=== PATIENT | female | born 1965 | race Hispanic/Latino ===

== ENCOUNTER 2018-12-13 09:27 | Outpatient (CLI) | payer BC ==
--- NOTE | 2018-12-13 10:13 | Ultrasound Report ---
TARGETED RIGHT BREAST ULTRASOUND: 12/13/18 09:27:00 CLINICAL: She has been referred for biopsy of the lesion at 10 o'clock 3 cm from the nipple. COMPARISON: [facility] 11/16/18 FINDINGS: Ultrasound of the right breast was performed at 10 o'clock 3 cm from the nipple and demonstrated a 5 mm fluid filled TDLU which correlates with the previously described finding. It has a slightly different appearance compared to the previous ultrasound but is now more distinctly a fluid-filled structure. No mass or shadowing. IMPRESSION: A probably benign cyst at 10 o'clock 3 cm from the nipple. Recommend mammographic and ultrasound followup rather than needle biopsy. BI-RADS 3 - - Probably Benign RECOMMENDATION: 6 month followup right mammogram and targeted right breast ultrasound.
== END 2018-12-13 09:28 | disposition home or self-care (01) ==
LOC: SPVWC 09:27
PROVIDERS: ATTEND Surgery
DX: N63.10 Unspecified lump in the right breast, unspecified quadrant (principal)

== ENCOUNTER 2021-01-24 10:14 | Outpatient (CLI) | payer BC ==
--- NOTE | 2021-01-24 10:54 | Mammography Report ---
DIGITAL SCREENING MAMMOGRAM WITH CAD, 01/24/2021 CLINICAL INFORMATION / INDICATION: Routine screening mammography. SCREENING MAMMOGRAM TECHNIQUE: Digital bilateral 2D mammography was obtained in the craniocaudal and mediolateral obliqu e projections. This examination was interpreted with the benefit of Computer-Aided Detection analysis . COMPARISON: 11/15/2019, 05/18/2019 FINDINGS: Breast Density: There are scattered areas of fibroglandular density. No dominant mass, suspicious calcifications, or architectural distortion in either breast. IMPRESSION: No mammographic evidence of malignancy. Follow up recommendation: Routine yearly BI-RADS Category 1: Negative. A "normal" or negative report should not discourage follow up or biopsy of a clinically significant f inding. A written summary of these findings will be mailed to the patient. The patient will be entered into a mammography reporting system which will generate a reminder letter for the patient's next appointmen t at the appropriate interval. The [employer] recommends yearly mammograms starting at age 40 and continuing as l orlin as a woman is in good health. Breast MRI is recommended for women with an approximate 20-25% or greater lifetime risk of breast cancer, including women with a strong family history of breast or ova praitma cancer or who have been treated for Hodgkin's disease. Signer Name: Norberto Birch MD Signed: 01/24/2021 10:50 AM Workstation Name: [id number]
== END 2021-01-24 10:15 | disposition home or self-care (01) ==
LOC: SPVWC 10:14
PROVIDERS: ATTEND Surgery
DX: Z12.31 Encounter for screening mammogram for malignant neoplasm of breast (principal)
CPT/HCPCS: 77067